=== PATIENT | male | born 2000 | race Two or more races ===

== ENCOUNTER 2021-07-03 16:34 | Emergency (ER) | payer OTHER ==
[2021-07-03 16:47] VITALS: BP 127/84; PULSE 92; TEMP 97.9; BMI 27.1
[2021-07-03] MEDS ORDERED: KETOROLAC TROMETHAMINE 30 MG/1 ML VIAL IM ONE (17:59)
[2021-07-03] MEDS ORDERED: KETOROLAC TROMETHAMINE 30 MG/1 ML VIAL ONE (18:02)
== END 2021-07-03 18:38 | disposition home or self-care (01) ==
LOC: JERFT 16:34
PROC: 3E023GC Introduction of Other Therapeutic Substance into Muscle, Percutaneous Approach (ICD-10-PCS; principal; 2021-07-03)
DX: S93.402A Sprain of unspecified ligament of left ankle, initial encounter (principal); X50.9XXA Other and unspecified overexertion or strenuous movements or postures, initial encounter
CPT/HCPCS: 73610-TC-LT-FY; 73630-TC-LT; 99284-25

== ENCOUNTER 2021-11-26 12:28 | Emergency (ER) | payer OTHER ==
[2021-11-26 12:31] VITALS: BP 112/54; PULSE 61; RESP 18; TEMP 97.9; BMI 27.2
[2021-11-26] MEDS ORDERED: KETOROLAC TROMETHAMINE 30 MG/1 ML VIAL IM ONE (13:50)
[2021-11-26] MEDS ORDERED: KETOROLAC TROMETHAMINE 30 MG/1 ML VIAL ONE (14:10)
== END 2021-11-26 14:30 | disposition home or self-care (01) ==
LOC: JERFT 12:28
PROC: 3E0233Z Introduction of Anti-inflammatory into Muscle, Percutaneous Approach (ICD-10-PCS; principal; 2021-11-26)
DX: M54.9 Dorsalgia, unspecified (principal)
CPT/HCPCS: 99283-25